=== PATIENT | male | born 1965 | race Caucasian/White ===

== ENCOUNTER 2018-02-23 12:56 | Emergency (ER) | payer MEDICARE, BC, OTHER ==
[2018-02-23] MEDS: ASPIRIN 325 MG TAB PO (13:45)
[2018-02-23 13:47] LABS: ADD MAN DIFF? NO
[2018-02-23 13:49] LABS: WHITE BLOOD COUNT 11.5 10^3/ul (4.8-10.8)
[2018-02-23 13:49] LABS: BASOPHIL # 0.1 10^3/ul (0.0-0.1); BASOPHILS % 0.7 % (0.0-2.0); EOSINOPHILS # 0.4 10^3/ul (0.0-0.5); EOSINOPHILS % 3.8 % (0.0-7.0); HEMATOCRIT 45.3 % (42.0-52.0); HEMOGLOBIN 15.5 g/dl (14.0-18.0); LYMPHOCYTES # 2.4 10^3/ul (0.8-2.9); LYMPHOCYTES % 21.2 % (15.0-51.0); MEAN CORPUSCULAR HEMOGLOBIN 28.3 pg (29.0-33.0); MEAN CORPUSCULAR HGB CONC 34.2 g/dl (32.0-37.0); MEAN CORPUSCULAR VOLUME 82.8 fl (82.0-101.0); MEAN PLATELET VOLUME 10.7 fl (7.4-10.4); MONOCYTE # 0.7 10^3/ul (0.3-0.9); MONOCYTES % 6.1 % (0.0-11.0); NEUTROPHIL # 7.7 10^3/ul (1.6-7.5); NEUTROPHILS % 67.7 % (39.0-77.0); PLATELET COUNT 197 10^3/UL (140-415); RED BLOOD COUNT 5.47 10^6/ul (4.70-6.10); RED CELL DISTRIBUTION WIDTH 12.8 % (11.5-14.5)
[2018-02-23 14:10] LABS: INR 1.53; PROTIME 18.7 Sec (11.9-14.9); PT RATIO 1.5
[2018-02-23 14:15] LABS: ANION GAP 14 (8-16); BLOOD UREA NITROGEN 10 mg/dl (7-20); CALCIUM 8.7 mg/dl (8.4-10.2); CARBON DIOXIDE 28 mmol/L (21-31); CHLORIDE 105 mmol/L (97-110); CREATININE 0.71 mg/dl (0.61-1.24); GLUCOSE 123 mg/dl (70-220); POTASSIUM 3.4 mmol/L (3.5-5.1); SODIUM 144 mmol/L (135-144)
[2018-02-23] MEDS: LIDOCAINE/MYLANTA 40 ML BTL PO (14:15)
[2018-02-23 14:26] LABS: B-TYPE NATRIURETIC PEPTIDE 270 PG/ML (0-125)
[2018-02-23] MEDS ORDERED: LABETALOL HCL 20MG INJ IV (15:30)
== END 2018-02-23 16:01 | disposition home or self-care (01) ==
LOC: E/R 16:01
DX: D72.829 Elevated white blood cell count, unspecified (principal)
CPT/HCPCS: 36415; 71045; 80048; 83880; 84484; 85025; 85610; 85730; 93005; 99285-25

== ENCOUNTER 2018-10-31 03:27 | Observation (INO) | payer MEDICARE, BC ==
[2018-10-31 03:46] LABS: ADD MAN DIFF? NO
[2018-10-31] MEDS: FUROSEMIDE 40 MG INJ IV (03:54)
[2018-10-31 04:08] LABS: ALANINE AMINOTRANSFERASE 24 IU/L (13-69); ALBUMIN 4.1 g/dl (3.3-4.9); ALBUMIN/GLOBULIN RATIO 1.13; ALKALINE PHOSPHATASE 81 IU/L (42-121); ANION GAP 12 (5-13); ASPARTATE AMINO TRANSFERASE 26 IU/L (15-46); BILIRUBIN,INDIRECT 0.5 mg/dl (0-1.1); BILIRUBIN,TOTAL 0.5 mg/dl (0.2-1.3); BLOOD UREA NITROGEN 16 mg/dl (7-20); CALCIUM 9.1 mg/dl (8.4-10.2); CARBON DIOXIDE 30 mmol/L (21-31); CHLORIDE 103 mmol/L (97-110); CREATININE 0.94 mg/dl (0.61-1.24); Estimated GFR > 60 mL/min (>60); GLUCOSE 183 mg/dl (70-220); POTASSIUM 3.2 mmol/L (3.5-5.1); SODIUM 145 mmol/L (135-144); TOTAL PROTEIN 7.7 g/dl (6.1-8.1)
[2018-10-31 04:20] LABS: B-TYPE NATRIURETIC PEPTIDE 361 PG/ML (0-125); TROPONIN-I < 0.012 ng/ml (0.000-0.120)
[2018-10-31 04:22] LABS: WHITE BLOOD COUNT 13.6 10^3/ul (4.8-10.8)
[2018-10-31 04:22] LABS: BASOPHIL # 0.1 10^3/ul (0.0-0.1); BASOPHILS % 0.7 % (0.0-2.0); EOSINOPHILS # 0.3 10^3/ul (0.0-0.5); EOSINOPHILS % 2.4 % (0.0-7.0); HEMATOCRIT 42.9 % (42.0-52.0); HEMOGLOBIN 14.6 g/dl (14.0-18.0); INR 2.15; LYMPHOCYTES # 2.6 10^3/ul (0.8-2.9); LYMPHOCYTES % 19.3 % (15.0-51.0); MEAN CORPUSCULAR HEMOGLOBIN 28.7 pg (29.0-33.0); MEAN CORPUSCULAR VOLUME 84.4 fl (82.0-101.0); MEAN PLATELET VOLUME 11.3 fl (7.4-10.4); MONOCYTE # 0.6 10^3/ul (0.3-0.9); MONOCYTES % 4.7 % (0.0-11.0); NEUTROPHIL # 9.8 10^3/ul (1.6-7.5); NEUTROPHILS % 72.2 % (39.0-77.0); PLATELET COUNT 223 10^3/UL (140-415); PROTIME 24.1 Sec (11.9-14.9); PT RATIO 1.9; RED BLOOD COUNT 5.08 10^6/ul (4.70-6.10); RED CELL DISTRIBUTION WIDTH 12.8 % (11.5-14.5)
[2018-10-31 04:23] LABS: PARTIAL THROMBOPLASTIN TIME 42.4 Sec (23.0-35.0)
[2018-10-31] MEDS: ASPIRIN 81 MG TAB PO (04:59)
[2018-10-31] MEDS: POTASSIUM CHLORIDE (SR) 20 MEQ TAB PO ×2 (04:59→12:49)
[2018-10-31] MEDS ORDERED: ONDANSETRON 4 MG INJ IV (06:30)
[2018-10-31] MEDS ORDERED: NACL 0.9% 3 ML SYG IV (06:30)
[2018-10-31] MEDS ORDERED: ACETAMINOPHEN 325 MG TAB PO (06:30)
[2018-10-31] MEDS ORDERED: HYDROCODONE/APAP (5/325) TAB PO ×2 (06:30)
[2018-10-31 07:13] LABS: LACTIC ACID 1.4 mmol/L (0.5-2.0)
[2018-10-31 07:23] LABS: CREATINE KINASE 78 IU/L (23-200)
[2018-10-31 07:43] LABS: CK-MB 0.81 ng/ml (0.0-2.4); TROPONIN-I 0.016 ng/ml (0.000-0.120)
[2018-10-31] MEDS: LEVOFLOXACIN 500MG/D5W (PMX) 100 ML IVPB (09:38)
[2018-10-31] MEDS: ASPIRIN (EC) 81 MG TAB PO (09:38)
[2018-10-31] MEDS: NEBIVOLOL 5 MG TAB PO (09:38)
[2018-10-31] MEDS: metFORMIN 500 MG TAB PO ×2 (09:39→17:28)
[2018-10-31 12:45] LABS: CREATINE KINASE 67 IU/L (23-200)
[2018-10-31 12:58] LABS: CK-MB 0.68 ng/ml (0.0-2.4); TROPONIN-I 0.023 ng/ml (0.000-0.120)
[2018-10-31] MEDS: NICOTINE (21 MG/24 HR) PATCH TRANSDERM (15:57)
[2018-10-31] MEDS: FUROSEMIDE 20 MG INJ IV (17:27)
[2018-10-31] MEDS: WARFARIN 3 MG TAB PO (17:27)
[2018-10-31] MEDS: WARFARIN 2 MG TAB PO (17:27)
[2018-10-31] MEDS: TAMSULOSIN (SR) 0.4 MG CAP PO (21:07)
[2018-10-31] MEDS: ZOLPIDEM 5 MG TAB PO (23:23)
[2018-11-01] MEDS: FUROSEMIDE 20 MG INJ IV (05:46)
[2018-11-01 06:07] LABS: ADD MAN DIFF? NO; BASOPHIL # 0.1 10^3/ul (0.0-0.1); BASOPHILS % 0.7 % (0.0-2.0); EOSINOPHILS # 0.4 10^3/ul (0.0-0.5); EOSINOPHILS % 3.4 % (0.0-7.0); HEMATOCRIT 43.1 % (42.0-52.0); HEMOGLOBIN 14.5 g/dl (14.0-18.0); LYMPHOCYTES # 2.6 10^3/ul (0.8-2.9); LYMPHOCYTES % 22.6 % (15.0-51.0); MEAN CORPUSCULAR HEMOGLOBIN 28.4 pg (29.0-33.0); MEAN CORPUSCULAR HGB CONC 33.6 g/dl (32.0-37.0); MEAN CORPUSCULAR VOLUME 84.5 fl (82.0-101.0); MEAN PLATELET VOLUME 11.2 fl (7.4-10.4); MONOCYTE # 0.7 10^3/ul (0.3-0.9); MONOCYTES % 5.9 % (0.0-11.0); NEUTROPHIL # 7.6 10^3/ul (1.6-7.5); NEUTROPHILS % 66.8 % (39.0-77.0); PLATELET COUNT 205 10^3/UL (140-415)
[2018-11-01 06:07] LABS: WHITE BLOOD COUNT 11.4 10^3/ul (4.8-10.8)
[2018-11-01 06:28] LABS: HEMOGLOBIN A1C 6.1 % (0-5.9)
[2018-11-01 06:49] LABS: ALANINE AMINOTRANSFERASE 22 IU/L (13-69); ALBUMIN 3.8 g/dl (3.3-4.9); ALBUMIN/GLOBULIN RATIO 1.02; ALKALINE PHOSPHATASE 71 IU/L (42-121); ANION GAP 4 (5-13); ASPARTATE AMINO TRANSFERASE 19 IU/L (15-46); BILIRUBIN,INDIRECT 0.7 mg/dl (0-1.1); BILIRUBIN,TOTAL 0.7 mg/dl (0.2-1.3); BLOOD UREA NITROGEN 16 mg/dl (7-20); CALCIUM 9.4 mg/dl (8.4-10.2); CARBON DIOXIDE 28 mmol/L (21-31); CHLORIDE 108 mmol/L (97-110); CHOL/HDL RATIO 8.5 RATIO; CHOLESTEROL 239 mg/dl (100-200); CREATININE 0.76 mg/dl (0.61-1.24); Estimated GFR > 60 mL/min (>60); GLUCOSE 118 mg/dl (70-220); HDL CHOLESTEROL 28 mg/dl (28-71); LDL CHOLESTEROL,CALCULATED 176 mg/dl; MAGNESIUM 2.1 mg/dl (1.7-2.5); POTASSIUM 3.1 mmol/L (3.5-5.1); SODIUM 140 mmol/L (135-144); TOTAL PROTEIN 7.5 g/dl (6.1-8.1); TRIGLYCERIDES 174 mg/dl (0-149)
[2018-11-01 07:12] LABS: THYROID STIMULATING HORMONE 0.938 MIU/L (0.465-4.680)
[2018-11-01] MEDS: metFORMIN 500 MG TAB PO (09:37)
[2018-11-01] MEDS: ASPIRIN (EC) 81 MG TAB PO (09:38)
[2018-11-01] MEDS: NEBIVOLOL 5 MG TAB PO (09:38)
[2018-11-01] MEDS: NICOTINE (21 MG/24 HR) PATCH TRANSDERM (09:39)
[2018-11-01] MEDS: LEVOFLOXACIN 500MG/D5W (PMX) 100 ML IVPB (09:41)
[2018-11-01] MEDS: POTASSIUM CHLORIDE (SR) 20 MEQ TAB PO (11:36)
[2018-11-01] MEDS ORDERED: ZOLPIDEM 5 MG TAB PO (21:00)
== END 2018-11-01 12:30 | disposition home or self-care (01) ==
LOC: E/R 03:27 → TEL 05:01
DX: R06.02 Shortness of breath (principal); I50.20 Unspecified systolic (congestive) heart failure; E11.9 Type 2 diabetes mellitus without complications; I10 Essential (primary) hypertension; N40.0 Benign prostatic hyperplasia without lower urinary tract symptoms; J18.9 Pneumonia, unspecified organism; F17.210 Nicotine dependence, cigarettes, uncomplicated; Z79.84 Long term (current) use of oral hypoglycemic drugs; Z79.2 Long term (current) use of antibiotics; Z86.73 Personal history of transient ischemic attack (TIA), and cerebral infarction without residual deficits; Z79.82 Long term (current) use of aspirin; Z88.0 Allergy status to penicillin
CPT/HCPCS: 36415; 71045; 80053; 80061; 82550; 82553; 83036; 83605; 83735; 83880; 84443; 84484; 85025; 85610; 85730; 93005; 93306; 96374; 99217; 99291-25; G0378